=== PATIENT | male | born 1990 | race African-American/Black ===

== ENCOUNTER 2018-11-12 16:54 | Emergency (ER) | payer SELFPAY | END 2018-11-12 17:32 | disposition home or self-care (01) | LOC: NAV ERS 16:54 | DX: L74.3 Miliaria, unspecified (principal) | CPT/HCPCS: 99282 ==

== ENCOUNTER 2019-06-17 11:53 | Emergency (ER) | payer OTHER, SELFPAY ==
--- NOTE | 2019-06-17 12:55 | RAD ---
Left foot 3 views: 06/17/2019 COMPARISON: None HISTORY: Evaluate for a plantar abscess FINDINGS: There is no displaced fracture or evidence of dislocation seen. There is mild mid foot dege nerative change dorsally. There is no subcutaneous gas or radiopaque foreign body in the region of the plantar soft tissues. IMPRESSION: No acute fracture or dislocation. If there is concern for infection within the soft tissu es of the foot, follow-up MRI suggested.
== END 2019-06-17 13:20 | disposition home or self-care (01) ==
LOC: NAV ERS 11:53
DX: L02.612 Cutaneous abscess of left foot (principal); L84 Corns and callosities
CPT/HCPCS: 87070; 87205

== ENCOUNTER 2021-09-27 11:45 | Emergency (ER) | payer SELFPAY ==
[2021-09-27] MEDS ORDERED: Ketorolac Tromethamine 30 MG/ML VIAL ONE (12:22)
[2021-09-27] MEDS ORDERED: Sodium Chloride 0.9% 1,000 ML ONE (12:22)
[2021-09-27] MEDS ORDERED: Ibuprofen 200 MG TAB ONE (12:35)
[2021-09-27 12:37] LABS: Bilirubin Negative (Negative); Blood, Urine Trace (Negative); Clarity Clear (Clear); Glucose, Urine (Dipstick) Negative (Negative); Ketone, Urine Negative (Negative); Leukocyte Negative (Negative); Nitrite Negative (Negative); Protein, Urine (Dipstick) Negative (Neg-Trace)
[2021-09-27 12:39] LABS: #Basophils 0.1 thou/uL (0.0-0.2); #Eosinphils 0.1 thou/uL (0.0-0.7); #Lymphocytes 1.4 thou/uL (1.20-3.40); #Monocytes 0.5 thou/uL (0.11-0.59); #Neutrophils 2.4 thou/uL (1.40-6.50); %Basophils 1.2 % (0.0-1.0); %Eosinophils 1.8 % (0.0-10.0); %Lymphocytes 31.9 % (21.0-51.0); %Monocytes 10.5 % (0.0-10.0); %Neutrophils 54.7 % (42.0-75.0); Hemoglobin 14.5 g/dL (14.0-18.0); Mean Corpuscular HGB CONC 31.6 g/dL (32.0-36.0); Mean Corpuscular Volume 98.1 fL (78.0-98.0); Mean Platelet Volume 11.5 fL (7.4-10.4); Platelet Count 142 thou/uL (130-400); RBC Distribution Width 13.1 % (11.5-14.5); Red Blood Cell (RBC) Count 4.67 mill/uL (4.70-6.10); White Blood Cell (WBC) Count 4.4 thou/uL (4.8-10.8)
[2021-09-27 12:46] LABS: RBC/HPF 0-3 HPF (0-3); Squamous Epithelial 0-3 HPF (0-3)
[2021-09-27 12:52] LABS: ALT (SGPT) 19 U/L (8-55); AST (SGOT) 15 U/L (5-34); Albumin 4.1 g/dL (3.5-5.0); Alkaline Phosphatase 39 U/L (40-110); Anion Gap 13 mmol/L (10-20); BUN (Urea Nitrogen) 14 mg/dL (8.9-20.6); Bilirubin, Total 0.3 mg/dL (0.2-1.2); CK (CPK) 213 U/L (30-200); Calc. Creatinine Clearance 0 mL/min (70-130); Calcium 9.3 mg/dL (7.8-10.44); Carbon Dioxide 25 mmol/L (22-29); Chloride 108 mmol/L (98-107); Globulin 2.8 g/dL (2.4-3.5); Glucose 93 mg/dL (70-105); Protein, Total 6.9 g/dL (6.0-8.3); Sodium 142 mmol/L (136-145)
== END 2021-09-27 13:05 | disposition home or self-care (01) ==
LOC: NAV ERS 11:45
DX: T67.5XXA Heat exhaustion, unspecified, initial encounter (principal); M79.10 Myalgia, unspecified site; F17.220 Nicotine dependence, chewing tobacco, uncomplicated
CPT/HCPCS: 36415; 80053; 81003; 81015; 82550; 85025; 99283; J1885; J7050

== ENCOUNTER 2021-12-10 03:26 | Emergency (ER) | payer SELFPAY ==
[2021-12-10] MEDS ORDERED: Bacitracin 1 PK ONE (03:54)
[2021-12-10] MEDS ORDERED: Ibuprofen 800 MG TAB ONE (03:54)
== END 2021-12-10 04:05 | disposition home or self-care (01) ==
LOC: NAV ERS 03:26
DX: T21.21XA Burn of second degree of chest wall, initial encounter (principal); F17.290 Nicotine dependence, other tobacco product, uncomplicated; X11.8XXA Contact with other hot tap-water, initial encounter
CPT/HCPCS: 99283